=== PATIENT | female | born 1950 | race Hispanic/Latino ===

== ENCOUNTER 2017-04-17 17:11 | Outpatient (CLI) | payer MEDICARE, OTHER | END 2017-04-17 17:12 | disposition home or self-care (01) | LOC: BICULT 17:11 | PROVIDERS: ATTEND Family Medicine | DX: M54.5 Low back pain (principal); R29.6 Repeated falls; M47.896 Other spondylosis, lumbar region; M48.54XA Collapsed vertebra, not elsewhere classified, thoracic region, initial encounter for fracture; M48.56XA Collapsed vertebra, not elsewhere classified, lumbar region, initial encounter for fracture | CPT/HCPCS: 72100 ==

== ENCOUNTER 2018-01-16 16:37 | Outpatient (CLI) | payer MEDICARE, OTHER | END 2018-01-16 16:38 | disposition home or self-care (01) | LOC: RAD 16:37 → BICRAD 16:38 | PROVIDERS: ATTEND Family Medicine | DX: M79.661 Pain in right lower leg (principal); M17.11 Unilateral primary osteoarthritis, right knee; M19.071 Primary osteoarthritis, right ankle and foot ==

== ENCOUNTER 2018-11-06 01:06 | Emergency (ER) | payer MEDICARE, OTHER | END 2018-11-06 01:54 | disposition left against medical advice (07) | LOC: ERS 01:06 | DX: Z53.21 Procedure and treatment not carried out due to patient leaving prior to being seen by health care provider (principal) ==

== ENCOUNTER 2021-12-07 13:52 | Outpatient (CLI) | payer MEDICARE | END 2021-12-07 13:53 | disposition home or self-care (01) | LOC: BICMAMMO 13:52 | PROVIDERS: ATTEND Internal Medicine | DX: Z08 Encounter for follow-up examination after completed treatment for malignant neoplasm (principal); Z85.3 Personal history of malignant neoplasm of breast | CPT/HCPCS: 77065; G0279 ==

== ENCOUNTER 2024-02-12 13:17 | Outpatient (CLI) | payer MEDICARE | END 2024-02-12 13:18 | disposition home or self-care (01) | LOC: BICMAMMO 13:17 | PROVIDERS: ATTEND Internal Medicine | DX: Z12.31 Encounter for screening mammogram for malignant neoplasm of breast (principal); M81.0 Age-related osteoporosis without current pathological fracture; Z85.3 Personal history of malignant neoplasm of breast; Z78.0 Asymptomatic menopausal state; Z90.11 Acquired absence of right breast and nipple; Z98.890 Other specified postprocedural states | CPT/HCPCS: 77065; 77080; G0279 ==